=== PATIENT | female | born 1995 | race African-American/Black ===

== ENCOUNTER 2019-05-18 11:55 | Inpatient (IN) | payer OTHER ==
--- NOTE | 2019-05-18 12:20 | ED ---
Psychiatric Complaint - HPI Summary HPI Summary: Patient is a 25-year-old -Gibralt[place] female with a past medical history of anxiety and depression who presents to emergency department today with a chief complaint of suicidal ideation. Patient states she was talking her counselor today and her counselor advised that she come to the emergency department for further evaluation of her depression. She arrived via EMS. Patient states she' s been feeling more depressed over the last few weeks and often has feelings of wanting to jump into traffic or walking around. She says she does not have a plan and does not have homicidal ideation. Patient lives alone in her dorm at [employer] does not have access to firearms. She is never made gestures of self- harm in the past. She denies any physical pain today including chest pain, abdominal pain, fever, pain with urination, shortness of breath. She denies any recent alcohol or recreational drug use. She denies any recent medication changes. - History Of Current Complaint Chief Complaint: EDSuicidal Time Seen by Provider: 05/18/19 12:14 Hx Obtained From: Patient Onset/Duration: Worse Since, Other - Chronic problem with depression and anxiety Timing: Constant Character: Depressed, Anxious Alleviating Factor(s): Medication Associated Signs And Symptoms: Positive: Social Withdrawal Related History: Positive For: Prior Psychiatric Issues Has Suicidal: Reports: Thoughts. Denies: With A Plan, Demonstrates Gesture, Has Prior Attempt(s) Has Homicidal: Denies: Thoughts Recent Stressor(s): school has been increasingly more stressful - Risk Factor(s) Completed Suicide Risk Factors: Living Alone - Allergies/Home Medications Home Medications: Home Medications Atomoxetine (NF) [Strattera (NF)] 18 mg PO DAILY 05/18/19 [History Confirmed 05/26] Desvenlafaxine Succinate [Desvenlafaxine Succinate ER] 50 mg PO BID 05/18/19 [ History Confirmed 05/18/19] Gabapentin CAP(*) [Neurontin 100 mg CAP(*)] 100 mg PO TID 05/18/19 [History Confirmed 05/18/19] PMH/Surg Hx/FS Hx/Imm Hx Infectious Disease History: No Infectious Disease History: Denies: Traveled Outside the US in Last 30 Days Review of Systems Constitutional: Negative Cardiovascular: Negative Respiratory: Negative Gastrointestinal: Negative Genitourinary: Negative Positive: Anxious, Depressed All Other Systems Reviewed And Are Negative: Yes Physical Exam Triage Information Reviewed: Yes Vital Signs On Initial Exam: Initial Vitals Temp Pulse Resp BP Pulse Ox 98.0 F 75 16 117/82 100 05/18/19 11:55 05/18/19 11:55 05/18/19 11:55 05/18/19 11:55 05/18/19 11:55 Vital Signs Reviewed: Yes Appearance: Positive: Well-Appearing, No Pain Distress Skin: Positive: Warm, Skin Color Reflects Adequate Perfusion Head/Face: Positive: Normal Head/Face Inspection Eyes: Positive: Normal, EOMI ENT: Positive: Hearing grossly normal Respiratory/Lung Sounds: Positive: Clear to Auscultation, Breath Sounds Present Cardiovascular: Positive: Normal, RRR, S1, S2 Psychiatric: Positive: Affect/Mood Appropriate - Flattened affect, Depressed - Patient is IN is calm and in no acute distress. She makes poor eye contact and interview but has an organized thought process with good insight. She speaks in appropriate rate and volume. AVPU Assessment: Alert Procedures - Sedation Patient Received Moderate/Deep Sedation with Procedure: No Diagnostics - Vital Signs Vital Signs Temp Pulse Resp BP Pulse Ox 05/18/19 11:55 98.0 F 75 16 117/82 100 - Laboratory Result Diagrams: 05/18/19 12:35 05/18/19 12:35 Lab Statement: Any lab studies that have been ordered have been reviewed, and results considered in the medical decision making process. Course/Dx - Course Course Of Treatment: Patient was evaluated in the emergency department today for suicidal ideation. Upon arrival to the emergency department via EMS she was placed on a hallway bed and placed under constant observation. She was change into scrubs and laboratory studies including blood and urinalysis were obtained. Her urinalysis, laboratory studies and toxicology report were all unremarkable. She was cleared for mental health evaluation. Psychiatry evaluated the patient and thought she could be more appropriately managed as an inpatient. Patient was stable at the time of discharge. Patient made no gestures of self-harm during her stay in the emergency department. - Differential Dx/Clinical Impression Differential Diagnosis/HQI/PQRI: Positive: Acute Psychosis, Anxiety, Depression , Suicidal Ideation Provider Diagnosis: Depression Discharge ED - Sign-Out/Discharge Documenting (check all that apply): Patient Departure - Discharge Plan Condition: Stable [place] [place] [facility] - Matthew LONDON [Primary Care Provider] - - Billing Disposition and Condition Condition: STABLE Disposition: Psychiatric Facility [facility]
[2019-05-18 12:42] LABS: ABS Basophils 0.1 10^3/ul (0-0.2); ABS Eosinophils 0.1 10^3/ul (0-0.6); ABS Lymphocytes 1.3 10^3/ul (1.0-4.8); ABS Monocytes 0.6 10^3/ul (0-0.8); Eosinophil % 1.3 %; Hematocrit 42 % (35-47); Mean Corpuscular HGB Conc 33 g/dL (31-36); Mean Corpuscular Hemoglobin 28 pg (27-31); Mean Corpuscular Volume 83 fL (80-97); Mean Platelet Volume 8.1 fL (7.4-10.4); Nucleated Red Blood Cells % 0.1; Platelet Count 218 10^3/uL (150-450); Red Blood Count 5.02 10^6 /uL (3.70-4.87); Red Cell Distribution Width 14 % (10-15); White Blood Count 5.1 10^3/uL (3.5-10.8)
[2019-05-18 13:03] LABS: ALT 12 U/L (7-52); AST 15 U/L (13-39); Albumin 4.4 g/dL (3.2-5.2); Albumin/Globulin Ratio 1.8 (1-3); Alkaline Phosphatase 73 U/L (34-104); Anion Gap 4 mmol/L (2-11); BUN/Creatinine Ratio 12.9 (8-20); Blood Urea Nitrogen 11 mg/dL (6-24); CO2 Carbon Dioxide 27 mmol/L (22-32); Calcium 9.9 mg/dL (8.6-10.3); Chloride 108 mmol/L (101-111); EGFR African American 101.2 (>60); EGFR Non-African American 83.6 (>60); Globulin 2.5 g/dL (2-4); Glucose 86 mg/dL (70-100); Sodium 139 mmol/L (135-145); Total Protein 6.9 g/dL (6.4-8.9)
[2019-05-18 13:26] LABS: Acetaminophen < 15 mcg/mL; Alcohol < 10 mg/dL (<10); Salicylate < 2.50 mg/dL (<30)
[2019-05-18 13:41] LABS: TSH (Thyroid Stimulating Horm) 1.11 mcIU/mL (0.34-5.60)
[2019-05-18] MEDS ORDERED: Al Hydrox/Mg Hydrox/Simet LIQ* 30 ML UDC PO PRN (16:48)
[2019-05-18] MEDS ORDERED: Acetaminophen TAB* 325 MG PO PRN (16:48)
[2019-05-18] MEDS ORDERED: hydrOXYzine HCL TAB* 50 MG PO PRN (16:56)
[2019-05-18] MEDS: Gabapentin CAP(*) 100 MG PO SCH (22:50)
[2019-05-19] MEDS: Gabapentin CAP(*) 100 MG PO SCH ×3 (09:56→20:41)
--- NOTE | 2019-05-19 15:13 | HP ---
HISTORY AND PHYSICAL: DATE OF ADMISSION: 05/18/19 PROVIDER: Kamille Davis NP in Psychiatry. SUPERVISING PHYSICIAN: Celestine Lezama MD * (DICTATED BY KAMILLE DAVIS,Holly P) JUSTIFICATION FOR ADMISSION: Kady is in need of 24-hour supervision and care secondary to suicidal ideation with a plan to overdose or jump into a gorge. HISTORY OF PRESENT ILLNESS: The patient is a 24-year-old single black female with a history of depression since high school, who arrives brought in by ambulance from [facility] and is here on a voluntary status following her visit to [facility] and alerting them that she is having serious suicidal thoughts that she cannot reduce. Kady is a [employer] senior. She seeks psychiatric help at [facility] at [employer]. Since high school she has been struggling with depression. The first time she had treatment was in 2018, in her kaz year at [employer]. At this point, she has tried many medications and has not found any of them helpful. She is ready to overdose or jump in a gorge. One part of the problem is that she only can sleep 3 or 4 hours since beginning of May. She also has worries about what she is going to do after graduation. She is a chemistry major. She is from [place]. In high school, she felt like social stress, friends, basketball (which was not enjoyable), were all factors causing her to be depressed. Her family is supportive, but they are uneducated about depression and mental illness in general. They are more sikh than she is and they tell her things are "happening for a reason" which is difficult for her to understand as she has no concept of what could be the purpose of her unending suffering. She states she is feeling like she is getting no rest and she is burned out. She is "tired of being tired" and she has a lack of hunger cues and feels nauseated. Kady demonstrates significant depressive symptoms including reduced sleep, reduced interest, high levels of guilt related to her family and her schooling. Her energy is reduced. She cannot concentrate on school. Her appetite is reduced and she is having suicidal ideations. PAST PSYCHIATRIC HISTORY: She has no previous admissions. She is being seen every other week by therapist Carmelina Carlos at [employer]. She is also being seen by Dr. Rhiannon James, psychiatrist at [facility]. She has been in treatment since September 2017, although she has suffered for years before that. She states the only things that have helped are exercise from playing basketball in high school. She has had suicidal ideation for quite some time. She does not have access to weapons. PAST MEDICAL HISTORY: Denied. MEDICATIONS: Her previous psychiatric medications have included: 1. Wellbutrin. 2. Lexapro. 3. Prozac. 4. Pristiq. 5. Adderall. 6. Strattera. 7. Hydroxyzine. 8. Gabapentin. 9. Guaifenesin. 10. Melatonin. 11. Benadryl. Currently, she is on Pristiq 100 mg and Strattera 18 mg. She also is reported to be on gabapentin 100 mg t.i.d. VIOLENCE HISTORY: Denied forensic issues. She does not have access to weapons. There is no history of violence. FAMILY HISTORY: She has a mom, a dad and a brother who is 20 in June. Her brother lives in [place] and is working. She states that she is not close to any one other than her immediate family and therefore she does not know if there is mental illness in her family. SUBSTANCE ABUSE: She denies using nicotine, alcohol, or any other drugs including marijuana. She has had no drug treatment. SOCIAL HISTORY: She is from [place] where she lived with her mom, dad and brother. She currently lives alone in an apartment off campus. She denies any abuse history. 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 She does not have a partner or romantic interest. 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 She enjoys listening to music and playing video games. She has no experience. There are no legal problems. REVIEW OF SYSTEMS: The patient reports feeling fatigued. She denies shortness of breath, heat or cold intolerance, chest pain, or abdominal pain. She denies neurological symptoms. She denies fevers or changes in weight. PHYSICAL EXAMINATION GENERAL APPEARANCE: Well appearing, no pain or distress. VITAL SIGNS: On 05/19/19 at 0800, temperature was 97.4, pulse 68, respirations 16, O2 sat on room air 100%, blood pressure 114/64. HEENT: Head and Face: Normal head and face inspection. Eyes: Normal. EOMI. ENT: Hearing grossly normal. CARDIOVASCULAR: Normal RRR. S1 and S2. RESPIRATORY: Lung sounds clear to auscultation. Breath sounds present. SKIN: Warm. Skin color reflects adequate perfusion. LABORATORY DATA: Most laboratory data are within normal limits. Exceptions include red blood cells high at 5.02. Her toxicology screen for salicylates, acetaminophen and serum alcohol are all negative. It appears that there has not been a urinalysis or toxicology screen performed. PHYSICAL DESCRIPTION: Kady is a 5 feet 4 inches, 170 pounds black female with her hair pulled on top of her head into a bun. Her grooming is good. She appears to be slightly hypokinetic. MENTAL STATUS EXAM: She is calm and cooperative, although tearful at times. Her speech is a normal rate, tone and volume. It is minimal in quantity. She is dysthymic. She is tearful. She has normal thought process. She is free of delusions. She is not homicidal. She is suicidal. She has no plans on a unit , but her intention should she leave is to end her life. She is not having hallucinations. Her insight is good. Her judgment is fair. She is alert and oriented x4. DIAGNOSIS: Major depressive disorder. IMPRESSION: Kady is a 24-year-old single black female who is a senior, majoring in chemistry at [employer], who comes to the hospital after making plans to overdose or jump into a gorge and suicide. PLAN: The patient is admitted to the adult behavioral health unit and placed on 15- minute checks for her own safety. She is encouraged to participate in supportive milieu, individual and group therapies. Estimated length of stay is 3 to 7 days. We will obtain an MMPI for diagnostic clarification. We will titrate medications including starting Abilify, stopping gabapentin and Strattera and using Klonopin at bedtime for sleep while she is inpatient. We will monitor for mood and thought content. Discharge planning will include family involvement and outpatient providers. KAMILLE DAVIS, PATITO [id number]/[facility] #: [id number] LIZ
[2019-05-19] MEDS: ARIPiprazole TAB* 5 MG PO SCH (20:41)
[2019-05-19] MEDS ORDERED: clonazePAM TAB(*) 1 MG PO SCH (21:00)
[2019-05-20] MEDS ORDERED: Influenza VAC *QUAD* 2019-20* 0.5 ML SYRINGE IM ONE (09:00)
[2019-05-20] MEDS ORDERED: Venlafaxine EXT RELEASE CAP* 75 MG PO SCH (09:00)
[2019-05-20] MEDS: Gabapentin CAP(*) 100 MG PO SCH (11:38)
[2019-05-20] MEDS: CMC:Desvenlafaxine (NF) 50 MG TAB PO SCH (11:39)
--- NOTE | 2019-05-20 13:40 | PN ---
Subjective - Subjective Date of Service: 05/20/19 Service Type: [id number] Hosp care 25 min moderate complexity Subjective: Jaimee reports being tired of being here, although she has been here only one full day. She wants to know if she can be discharged on Saturday as she has a plane to catch on Saturday. She continues to have suicidal thoughts, however, and would not be safe in the outpatient world. She states she didn't sleep much here (3-4 hours), but rather just was lying in bed quietly. I did suggest that she give a little wave so people know if she's awake or asleep. She states the Klonopin was not helpful in making her feel tired. She was working on a time management schedule when I was talking to her. It looked packed with activity Saturday through , many days having no leisure time at all. We discussed sleep hygiene in addition to making a schedule that she can stick with and be comfortable with. Objective - General Observations Appearance: Neat, Well Groomed Appears Stated Age: Yes Stature: Overweight Posture: WNL Eye Contact: Intermittent Behavior/Activity: WNL - Interaction Observations Attitude Towards Examiner: Cooperative, Anxious, Defensive Affect: Restricted Speech Pattern/Tone: Clear Thought Process: Coherent Perception: WNL Thought Content: Preoccupation/Ruminations, Depressive, Self-Deprecatory Thought Process: Lethality: Passive Wish, Suicidal Planning Hallucination Type: None Delusion Type: None - Cognitive Function Orientation: A&O x 4 Level of Consciousness: Awake, Alert, Appropriate Cognition: WNL Estimated Intelligence: Normal Insight: Difficulty Acknowledging Presence of Psyciatric Problems Judgment Within Normal Limits: No Ability to Make Reasonable Decisions: Moderately Impaired - Medication Compliance Cooperative with Inpatient Medication Regimen: Yes - Group Participation Participates in Group Activities: Yes Assessment - Assessment Merits Inpatient Hospitalization: For Immediate Safety Inpatient DSM-V Dx: F33.1 Clinical Impression: Jaimee is a 24-year-old black woman diagnosed with major depressive disorder who comes to the hospital with suicidal ideation and plans to jump into a gorge or overdose. Plan - Plan Treatment Plan: Name: JAIMEE MAR Birthdate: 1995 [id number] 05/20/19 Yesterday we started her home medications in addition to Klonopin to help her sleep. Tonight, we will discontinue gabapentin and start Ativan for sleep. Continued Medication Management: Different Medication Medications: Current Medications Acetaminophen (Tylenol Tab*) 650 mg PO Q4H PRN PRN Reason: for pain; or Temp >101 F Al Hydrox/Mg Hydrox/Simethicone (Maalox Plus*) 30 ml PO Q4H PRN PRN Reason: INDIGESTION Aripiprazole (Abilify Tab*) 5 mg PO BEDTIME [facility] Last Admin: 05/19/19 20:41 Dose: 5 mg Clonazepam (Klonopin Tab(*)) 1 mg PO BEDTIME [facility] Last Admin: 05/19/19 20:42 Dose: 1 mg Desvenlafaxine Succinate (Pristiq (Nf)) 100 mg PO DAILY [facility] Last Admin: 05/20/19 11:39 Dose: 100 mg Gabapentin (Neurontin Cap(*)) 100 mg PO TID [facility] Last Admin: 05/20/19 11:38 Dose: 100 mg Hydroxyzine HCl (Atarax Tab*) 50 mg PO Q6H PRN PRN Reason: anxiety
--- NOTE | 2019-05-20 16:50 | PN ---
BSU: Group Therapy Note - Service Type Service Type: [id number] Group Psychotherapy - Group Participation Patient Participating in Group: No Level of Group Participation: Attentive, Non-participatory Relatedness to Group: Defended - Additional Group Comments Group Comments: Kady came to group and was on time. She did not participate, but she was attentive. She appeared uncomfortable during the group, perhaps because her neighboring group member was clearly psychotic and bizarre.
[2019-05-20] MEDS: LORazepam TAB(*) 1 MG PO SCH (20:51)
[2019-05-20] MEDS: ARIPiprazole TAB* 5 MG PO SCH (20:51)
[2019-05-21] MEDS: CMC:Desvenlafaxine (NF) 50 MG TAB PO SCH (08:40)
[2019-05-21] MEDS ORDERED: LORazepam TAB(*) 0.5 MG PO PRN (11:27)
--- NOTE | 2019-05-21 15:29 | PN ---
Subjective - Subjective Date of Service: 05/21/19 Service Type: 35223 Hosp care 25 min moderate complexity Subjective: Jaimee feels anxious but better, she is no longer suicidal. She talked to her parents on the phone twice last night. She states that they were "freaked out" when she told them that she was in the hospital. Her parents quickly recovered and are worried about her safety. Her mom is flying up from [place] on Saturday. Jaimee is motivated to stay well until her mom arrives due to the excitement of the concert that they'll be going to on Saturday. She would like to work on "life enjoyment, setting limits, and saying no". Objective - General Observations Appearance: Neat Appears Stated Age: Yes Stature: WNL Posture: Slumped Eye Contact: Intermittent Behavior/Activity: WNL - Interaction Observations Attitude Towards Examiner: Cooperative, Anxious Stated Mood: Dysphoric Affect: Restricted Speech Pattern/Tone: Appropriate, Quiet Volume Thought Process: Coherent, Goal Directed Perception: WNL Thought Content: Depressive Hallucination Type: None Delusion Type: None - Cognitive Function Orientation: A&O x 4 Level of Consciousness: Awake, Alert, Appropriate Cognition: WNL Estimated Intelligence: Normal Insight: WNL Judgment Within Normal Limits: Yes - Medication Compliance Cooperative with Inpatient Medication Regimen: Yes - Group Participation Participates in Group Activities: Partial Assessment - Assessment Merits Inpatient Hospitalization: For Immediate Safety, For Discharge Planning Inpatient DSM-V Dx: F33.1 Clinical Impression: Jaimee is a 24-year-old black woman diagnosed with major depressive disorder who comes to the hospital with suicidal ideation and plans to jump into a gorge or overdose. Plan - Plan Treatment Plan: Name: JAIMEE MAR Birthdate: 1995 [id number] 05/20/19 Yesterday we started her home medications in addition to Klonopin to help her sleep. Tonight, we will discontinue gabapentin and start Ativan for sleep. 05/21/2019: Today we added PRN Ativan during the day and changed scheduled to PRN at bedtime. Planning for discharge tomorrow. Medications: Current Medications Acetaminophen (Tylenol Tab*) 650 mg PO Q4H PRN PRN Reason: for pain; or Temp >101 F Al Hydrox/Mg Hydrox/Simethicone (Maalox Plus*) 30 ml PO Q4H PRN PRN Reason: INDIGESTION Aripiprazole (Abilify Tab*) 5 mg PO BEDTIME XOCHITL Last Admin: 05/20/19 20:51 Dose: 5 mg Desvenlafaxine Succinate (Pristiq (Nf)) 100 mg PO DAILY [facility] Last Admin: 05/21/19 08:40 Dose: 100 mg Hydroxyzine HCl (Atarax Tab*) 50 mg PO Q6H PRN PRN Reason: anxiety Lorazepam (Ativan Tab(*)) 1 mg PO BEDTIME [facility] Last Admin: 05/20/19 20:51 Dose: 1 mg Lorazepam (Ativan Tab(*)) 0.5 mg PO Q4H PRN PRN Reason: ANXIETY - Discharge Plan Discharge Plan: Outpatient Follow Up Outpatient Program: Counseling/Psych Services at [place]
[2019-05-21] MEDS: LORazepam TAB(*) 1 MG PO SCH (21:00)
[2019-05-21] MEDS: ARIPiprazole TAB* 5 MG PO SCH (21:00)
[2019-05-22 07:24] LABS: HDL Cholesterol 41.9 mg/dL
[2019-05-22] MEDS: CMC:Desvenlafaxine (NF) 50 MG TAB PO SCH (08:16)
[2019-05-22 10:38] VITALS: BP 117/72
--- NOTE | 2019-05-25 22:22 | DS ---
DISCHARGE SUMMARY: DATE OF ADMISSION: 05/18/19 DATE OF DISCHARGE: 05/22/19 PROVIDER: Kamille Davis NP in Psychiatry. SUPERVISING PHYSICIAN: Dr. Celestine Lezama.* (DICTATED BY KAMILLE DAVIS NP ) DIAGNOSIS: Major depressive disorder, recurrent, severe. CONDITION AT THE TIME OF DISCHARGE: Improved, psychiatrically cleared, stable. Participated in groups and was social with peers. Her family is agreeable to discharge and in fact her mother is coming from [place] to be with her on Saturday. She has done well here psychiatrically. She tolerated new medications including lorazepam and Abilify. She will be attending [facility]. MENTAL STATUS EXAM: At the time of discharge, Kady is calm, cooperative, and makes good eye contact. She is alert and oriented x4. Her grooming is good. Her speech pace is normal. Her thought processes are logical. She is not psychotic or delusional. She denies AH, VH, SI, and HI. Her insight and judgment are good. She is willing to follow up and she is urged to see her therapist. DISCHARGE INSTRUCTIONS TO THE PATIENT: A. Medications: 1. Aripiprazole 5 mg at bedtime, dispensed 30. 2. Pristiq 100 mg daily. 3. Hydroxyzine 50 mg q.6 hours p.r.n. anxiety. 4. Lorazepam 0.5 mg q.4 hours p.r.n. anxiety, dispensed 30 tablets. 5. Ativan 1 mg at bedtime, dispensed 15 tablets, p.r.n. sleep. B. Diet is regular. C. Activities are as tolerated. She is a nonsmoker. There are no studies pending at the time of discharge. D. Followup care: She has an appointment at [facility] with Jovanna Castillo on 05/22/19 at 4 p.[address]. on level 7 of the building. Please arrive 10 minutes earlier for your appointment. She is also informed on a group [facility] support group at [facility] Tuesdays at 3:30 to 4:45, drop-ins welcome level 1 in the [place] conference room. E. Disposition: She is returning back to her apartment. F. Substance abuse followup is not indicated. HOSPITAL COURSE: Part A: Justification for admission: Kady is in need of 24- hour supervision and care secondary to suicidal ideation with a plan to overdose or jump into a gorge. The patient is a 24-year-old single black female with a history of depression since her high school, who arrives brought in by ambulance from [facility] and is here on a voluntary status following her visit to [facility] and is alerting them that she is having serious suicidal thoughts that she cannot reduce. Kady is a [employer] senior. She seeks psychiatric help at [facility] at [employer]. Since high school, she has been struggling with depression. The first time she had treatment was in 2018 in her kaz year at [employer]. At this point, she tried many medications and has not found any of them helpful. She is ready to overdose or jump into a gorge. One part of the problem is that she only can sleep 3 or 4 hours per night since beginning of May. She also has worries about what she is going to do after graduation. She is a chemistry major. She is from [place]. In high school, she felt like social stress, friends, basketball (which was not enjoyable) were all factors causing her to be depressed. Her family is supportive, but they are uneducated about depression and mental illness in general. They are more zoroastrian than she is and they tell her that things are "happening for a reason" which is difficult for her to under-stand as she has no concept of what could be the purpose of her unending suffering. She states she is feeling like she is getting no rest and she is burned out. She is " tired of being tired" and she has a lack of hunger cues and feels nauseated. Kady demonstrates significant depressive symptoms including reduced sleep, reduced interest, high levels of guilt related to her family and her schooling. Her energy is reduced. She cannot concentrate on school. Her appetite is reduced and she is having suicidal ideations. Part B: Psychiatric treatment was rendered. Kady was admitted to the adult behavioral unit and placed on 15-minute checks for safety. She did advance to 30- minute checks and staff pass privileges. Kady did well on the unit, went to many groups, was often seclusive to herself, but interacted appropriately. She tolerated med changes. We started Abilify 5 and maintained her Pristiq 100. We also added lorazepam. We chose lorazepam rather than increasing hydroxyzine or trying more gabapentin because she had tried all of these agents and found none of them helpful. I did advise her that Ativan is not an agent that is advisable to stay on for a long period of time and that they should be used as an emergency stopgap measure only. She was prescribed fewer tablets than her maximum daily dosages would be and she was advised of this. I did not meet with her family, but her mother is coming up from [place] to take her to a concert that is happening in [place]. Kady had asked to be discharged on Saturday earlier in the week so that she could get on a plane and go to [place] by herself. We discussed that and determined that was a poor plan--being alone in a new place while still experiencing SI, as she was when she initially asked. By Saturday, however, her mother wanted to be with her, so she came up from [place]. They were together on Saturday and went to the concert on Saturday. Her mother agreed to stay with Kady until Kady felt better. No consults were entered. She is much improved. She is seen smiling. She is actually benefiting from the boredom here at the hospital and making her want to get back out into the world and do what she has to do. She is future oriented. She is no longer suicidal. Her sleep improved while she was here as well. KAMILLE DAVIS, PATITO [id number]/[facility] #: [id number] LIZ
== END 2019-05-22 14:31 | disposition home or self-care (01) | DRG 885 ==
LOC: EDBD → ED 11:55 → BSU 16:48
PROVIDERS: ADMIT Psychiatry & Neurology Psychiatry; ATTEND Psychiatry & Neurology Psychiatry
DX: F33.1 Major depressive disorder, recurrent, moderate (principal); R45.851 Suicidal ideations; Z79.899 Other long term (current) drug therapy
CPT/HCPCS: 36415; 80053; 80061; 80320; 80329; 83036; 84443; 85025; 90686; 90853; 99222; 99232; 99238; 99284; A9270-GY; G0480

== ENCOUNTER 2019-08-24 12:03 | Inpatient (IN) | payer OTHER ==
--- NOTE | 2019-08-24 13:04 | ED ---
Psychiatric Complaint - HPI Summary HPI Summary: The patient is a 24 y/o F presenting to [facility] with a cc of depression and SI worsening over the last few weeks. Today, she went to the [facility] and was referred her for a MHE due to the intermittent episodes of SI increasing in severity. She states a plan for cutting herself or jumping off of something. She denies any self-harm at this time or any HI. She notes a history of depression and anxiety, and she currently takes Pristiq. She has been seen at [facility] with last admission in May 2019. PMHx: headaches. No FHx of psychiatric conditions. Nonsmoker, no EtOH, no substance use. Medications reviewed. Allergies noted. - History Of Current Complaint Chief Complaint: EDSuicidal Time Seen by Provider: 08/24/19 12:11 Hx Obtained From: Patient Onset/Duration: Gradual Onset, Lasting Weeks, Still Present, Worse Since - today Timing: Days Severity Initially: Mild Severity Currently: Moderate Character: Depressed Aggravating Factor(s): Nothing Alleviating Factor(s): Other - went to [facility] today and was referred here Associated Signs And Symptoms: Positive: Negative Related History: Positive For: Prior Psychiatric Issues - anxiety, depression Has Suicidal: Reports: Thoughts, With A Plan Has Homicidal: Denies: Thoughts - Allergies/Home Medications Allergies/Adverse Reactions: Allergies Allergy/AdvReac Type Severity Reaction Status Date / Time No Known Allergies Allergy Verified 08/24/19 12:45 PMH/Surg Hx/FS Hx/Imm Hx Endocrine/Hematology History: Denies: Hx Diabetes Respiratory History: Denies: Hx Asthma Sensory History: Denies: Hx Contacts or Glasses, Hx Hearing Aid Opthamlomology History: Denies: Hx Contacts or Glasses Neurological History: Reports: Hx Headaches Psychiatric History: Reports: Hx Anxiety, Hx Depression Denies: Hx Eating Disorder, Hx Panic Disorder, Hx Suicide Attempt, Hx of Violent Episodes Against Others - Surgical History Surgical History: Yes Surgery Procedure, Year, and Place: [place] teeth Infectious Disease History: No Infectious Disease History: Denies: Traveled Outside the [place] in Last 30 Days - Family History Known Family History: Negative: Other - psychiatric conditions - Social History Alcohol Use: None Hx Substance Use: No Substance Use Type: Reports: None Hx Tobacco Use: No Smoking Status (MU): Never Smoked Tobacco Review of Systems Negative: Other - self-inflicted wounds Positive: Depressed, Other - SI with plan; Negative: HI All Other Systems Reviewed And Are Negative: Yes Physical Exam - Summary Physical Exam Summary: General: Well appearing, no distress HEENT: PERRL Cardiovascular: Skin is well perfused Pulmonary: No respiratory distress, no tachypnea Abdomen: Non-distended Skin: Warm, pink, dry MSK: No edema Psych: Normal affect Neuro: A&Ox3 Triage Information Reviewed: Yes Vital Signs On Initial Exam: Initial Vitals Temp Pulse Resp BP Pulse Ox 98.4 F 69 14 107/65 99 08/24/19 12:07 08/24/19 12:07 08/24/19 12:07 08/24/19 12:07 08/24/19 12:07 Vital Signs Reviewed: Yes Procedures - Sedation Patient Received Moderate/Deep Sedation with Procedure: No Diagnostics - Vital Signs Vital Signs Temp Pulse Resp BP Pulse Ox 08/24/19 12:07 98.4 F 69 14 107/65 99 - Laboratory Result Diagrams: 08/24/19 13:13 08/24/19 13:13 Lab Statement: Any lab studies that have been ordered have been reviewed, and results considered in the medical decision making process. Re-Evaluation - Re-Evaluation First Eval Re-Evaluation Time: 13:00 Comment: Patient is medically clear for MHE. Course/Dx - Course Course Of Treatment: 24 y/o F p/w depressive episode. Placed in scrubs, q15 checks. MH team to eval. - Differential Dx/Clinical Impression Provider Diagnosis: Major depressive disorder, recurrent, unspecified - Physician Notifications Discussed Care Of Patient With: Celestine Lezama - psychiatry Time Discussed With Above Provider: 15:20 Instructed by Provider To: Other - Dr. Lezama and mental health staff have evaluated the patient and have determined she is appropriate for admission, which the patient agrees with. Discharge ED - Sign-Out/Discharge Documenting (check all that apply): Patient Departure - Patient admitted by Dr. Lezama to [facility] psychiatric unit. - Discharge Plan Condition: Stable Disposition: PSYCHIATRIC FACILITY-[facility] Referrals: [facility] - Matthew LONDON [Primary Care Provider] - - Billing Disposition and Condition Condition: STABLE Disposition: Psychiatric Facility [facility] - Attestation Statements Document Initiated by Scribe: Yes Documenting Scribe: Valerie Calhoun Provider For Whom Scribe is Documenting (Include Credential): Dr. Raj Woods MD Scribe Attestation: I, Valerie Calhoun, scribed for Dr. Raj Woods MD on 08/24/19 at 1547. Scribe Documentation Reviewed: Yes Provider Attestation: The documentation as recorded by the Valerie burns accurately reflects the service I personally performed and the decisions made by me, Dr. Raj Woods MD Status of Scribe Document: Viewed
[2019-08-24 13:24] LABS: ABS Basophils 0.1 10^3/ul (0-0.2); ABS Eosinophils 0.1 10^3/ul (0-0.6); ABS Lymphocytes 1.5 10^3/ul (1.0-4.8); ABS Monocytes 0.5 10^3/ul (0-0.8); ABS Neutrophils 3.5 10^3/ul (1.5-7.7); Eosinophil % 1.9 %; Hematocrit 41 % (35-47); Hemoglobin 13.8 g/dL (12.0-16.0); Lymphocyte % 26.4 %; Mean Corpuscular HGB Conc 34 g/dL (31-36); Mean Corpuscular Hemoglobin 28 pg (27-31); Mean Corpuscular Volume 83 fL (80-97); Mean Platelet Volume 8.4 fL (7.4-10.4); Nucleated Red Blood Cells % 0.1; Platelet Count 241 10^3/uL (150-450); Red Blood Count 5.01 10^6 /uL (3.70-4.87); Red Cell Distribution Width 14 % (10-15); White Blood Count 5.8 10^3/uL (3.5-10.8)
[2019-08-24 13:30] LABS: Urine Appearance Cloudy; Urine Bilirubin Negative (Negative); Urine Blood Negative (Negative); Urine Color Yellow; Urine Glucose Negative (Negative); Urine Ketones Negative (Negative); Urine Nitrite Negative (Negative); Urine Protein Negative (Negative); Urine Specific Gravity 1.024 (1.010-1.030); Urine Urobilinogen Negative (Negative)
[2019-08-24 13:43] LABS: Urine Benzodiazepine Screen None Detected (None Detect); Urine Opiates Screen None Detected (None Detect)
[2019-08-24 13:44] LABS: Albumin 4.7 g/dL (3.2-5.2); Anion Gap 6 mmol/L (2-11); CO2 Carbon Dioxide 26 mmol/L (22-32); Calcium 9.8 mg/dL (8.6-10.3); Chloride 105 mmol/L (101-111); Sodium 137 mmol/L (135-145)
[2019-08-24 13:50] LABS: ALT 50 U/L (7-52); AST 25 U/L (13-39); Albumin/Globulin Ratio 1.7 (1-3); Alkaline Phosphatase 72 U/L (34-104); BUN/Creatinine Ratio 10.7 (8-20); Blood Urea Nitrogen 9 mg/dL (6-24); EGFR African American 102.6 (>60); EGFR Non-African American 84.8 (>60); Globulin 2.7 g/dL (2-4); Glucose 82 mg/dL (70-100); Total Protein 7.4 g/dL (6.4-8.9)
[2019-08-24 13:55] LABS: Acetaminophen < 15 mcg/mL; Alcohol < 10 mg/dL (<10); Salicylate < 2.50 mg/dL (<30)
[2019-08-24 14:10] LABS: TSH (Thyroid Stimulating Horm) 1.06 mcIU/mL (0.34-5.60)
[2019-08-24] MEDS ORDERED: Al Hydrox/Mg Hydrox/Simet LIQ* 30 ML UDC PO PRN (15:45)
[2019-08-24] MEDS ORDERED: Acetaminophen TAB* 325 MG PO PRN (15:45)
[2019-08-24] MEDS ORDERED: hydrOXYzine HCL TAB* 50 MG PO PRN (15:46)
[2019-08-25 08:36] LABS: HDL Cholesterol 48.4 mg/dL
[2019-08-25] MEDS: CMCS:Desvenlafaxine (NF) 50 MG TAB PO SCH (11:22)
[2019-08-25] MEDS ORDERED: LORazepam TAB(*) 1 MG PO ONE ×2 (11:42→21:00)
--- NOTE | 2019-08-25 13:41 | HP ---
HISTORY AND PHYSICAL: DATE OF ADMISSION: 08/24/19 PROVIDER: Kamille Davis NP in Psychiatry. SUPERVISING PHYSICIAN: Celestine Lezama MD * (DICTATED BY KAMILLE DAVIS NP) JUSTIFICATION FOR ADMISSION: The patient is in need of 24-hour supervision and care secondary to suicidal ideation with a plan CHIEF COMPLAINT: "I do not see my life going anywhere...I am stuck." HISTORY OF PRESENT ILLNESS: The patient is a 24-year-old single black female with a history of depressive disorder, who was brought here on a 9.45 status and is here admitted to this unit on a voluntary status after stating that she is having suicidal thoughts that have been going on for some time. Kady has been here once before in May 2019, following that visit she returned to [facility] and saw Dr. Rhiannon Calderon. Dr. Calderon changed her medications from Pristiq, Abilify and Ativan to Pristiq and was hoping to work on giving her lithium, which was suggested to address her chronic suicidal ideation. She states that she is speaking with friends at work and in class, but is generally isolated from them and she goes home. She states she sits at home and "watches nothing change." She has been missing a few classes here and there. It is 3 weeks into this semester, so she is not certain if her grades are maintained or not. She did pass last semester. She states she is tired and frustrated and she cries because she is frustrated and alone. She states she does not see her life going anywhere and that she is stuck. She states that her depression leads to further depression that her grades have been suffering and she has a lack of direction. She states she does not have an interest in chemistry or anything else anymore. She is experiencing stress and burnout as she has for years. She is sleeping irregularly. She states the only thing that has helped her sleep in the past is Ativan. She has tried melatonin and hydroxyzine. She is having suicidal ideations. She initially states she does not really have a plan and then admits to having a plan of cutting. Her evaluation in the emergency department indicates that she is also considering jumping from a height. She further notes that she has a flight home on Saturday to see her family. She is not apparently eager to see them and offers a long pause and a sigh when asked if she wants to go on this flight. Her sleep is irregular, interest is significantly reduced. Her energy is reduced. She has had trouble concentrating on her schoolwork. She is sitting very still, does not gesture at all and she has suicidal ideation. PAST PSYCHIATRIC HISTORY: She was admitted here on 05/18/19 for a stay of 5 days. She was seen recently and frequently in the past week by her therapist Carmelina Gilbert at [facility]. She has also seen Dr. Rhiannon Calderon, the psychiatrist at [facility] that she has been assigned to. She has been in treatment since September 2017, although she has suffered for years before that. She states the only thing that has helped was exercise from playing basketball in high school. She has had suicidal ideation for years. She does not have access to weapons. PAST MEDICAL HISTORY: Denied. MEDICATIONS: That she has tried in the past include: 1. Wellbutrin. 2. Lexapro. 3. Prozac. 4. Pristiq. 5. Adderall. 6. Strattera. 7. Hydroxyzine. 8. Gabapentin. 9. Guaifenesin. 10. Melatonin 11. Benadryl. She is currently on Pristiq 100 mg. She has been prescribed BuSpar but has not started that yet. VIOLENCE HISTORY: She denies forensic issues. She does not have access to weapons. There is no history of violence. FAMILY HISTORY: She has mom and dad and a brother who is 21. Her brother lives in [place] and is working. She states that she is not close to anyone other than her immediate family and therefore she does not know if there is mental illness in her family. SUBSTANCE ABUSE: She denies using nicotine, alcohol or any other drugs including marijuana. She has had no drug treatment. SOCIAL HISTORY: She is from [place] where she lived with her mom dad and brother. She currently lives alone in an apartment off campus. She denies any abuse history. She is a senior at [employer], majoring in chemistry. She does not have a partner or a romantic interest. 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 She enjoys listening to music and playing video games. She has no experience. There are no legal problems. REVIEW OF SYSTEMS: The patient reports feeling fatigued. She denies shortness of breath, heat or cold intolerance, chest pain or abdominal pain. She denies neurological symptoms. She denies fevers or changes in weight. PHYSICAL EXAMINATION GENERAL: Well appearing, in no distress. VITAL SIGNS: On 08/25/19 at 0800 temperature was 97.3, pulse 90, respirations 14, O2 sat on room air 100, blood pressure 116/71. HEENT: PERRL. PULMONARY: No respiratory distress. No tachypnea. CARDIOVASCULAR: Skin is well perfused. ABDOMEN: Nondistended. SKIN: Warm, pink and dry. MUSCULOSKELETAL: No edema. NEUROLOGIC: Alert and oriented x4. DIAGNOSTIC STUDIES/LAB DATA: Most data are within normal limits exceptions include red blood cells high at 5.01, hemoglobin A1c is normal at 5.5%, triglycerides 79, cholesterol 188, LDL cholesterol 124, HDL cholesterol 48.4. TSH is 1.06. Toxicology screen is free from any drugs of abuse. MENTAL STATUS EXAM: Kady is 5 feet 4 inches approximately 170 pounds. She is a black female with her hair pulled on top of her head into a bun and she is wearing a fabric headband that covers her ears. Her grooming is good. She appears to be hypokinetic. She is calm and cooperative. She is quiet and requires prompting to answer questions. Her speech is in normal rate and tone. Volume is soft. She is dysthymic. She is tearful at times. Her thought processes appear to be of a normal rate and they are logical. Her thought content is free of delusions. She is not homicidal. She remains suicidal and is thinking of suicide on the unit, although she does not have a method on the unit. She is not experiencing hallucinations. Her insight is fair. Her judgment is fair. She is alert and oriented x4. DIAGNOSIS: Major depressive disorder, recurrent, severe. IMPRESSION: Kady is a 24-year-old woman who comes to the hospital after being on a 9.45 status at [facility]. She has been isolating from home. She has been considering suicide either from cutting herself or jumping from a bridge, and she is putting significant pressures on herself to perform better at work and in school. PLAN: The patient is admitted to adult behavioral health unit and placed on q.15 minute checks for her own safety. She is encouraged to participate in supportive, milieu, individual, and group therapies. Estimated length of stay is 5 to 7 days. We will titrate medications including starting Wellbutrin and monitoring for mood and thought content. Discharge planning will include family involvement and outpatient providers. KAMILLE DAVIS, PATITO [id number]/CPS #: [id number] LIZ
[2019-08-25] MEDS: BuPROPion XL* 150 MG TAB.XL PO SCH (13:45)
[2019-08-26] MEDS: CMCS:Desvenlafaxine (NF) 50 MG TAB PO SCH (09:30)
[2019-08-26] MEDS: BuPROPion XL* 150 MG TAB.XL PO SCH (09:30)
--- NOTE | 2019-08-26 14:45 | PN ---
Subjective - Subjective Date of Service: 08/26/19 Service Type: 00117 Hosp care 15 min low complexity Plan - Plan Treatment Plan: Name: JAIMEE MAR Birthdate: 1995 [id number] Medications: Current Medications Acetaminophen (Tylenol Tab*) 650 mg PO Q4H PRN PRN Reason: for pain; or Temp >101 F Al Hydrox/Mg Hydrox/Simethicone (Maalox Plus*) 30 ml PO Q4H PRN PRN Reason: INDIGESTION Bupropion HCl (Wellbutrin Xl *) 150 mg PO DAILY [facility] Last Admin: 08/26/19 09:30 Dose: 150 mg Desvenlafaxine Succinate (Pristiq (Nf)) 100 mg PO DAILY [facility] Last Admin: 08/26/19 09:30 Dose: 100 mg Hydroxyzine HCl (Atarax Tab*) 50 mg PO Q6H PRN PRN Reason: Anxiety
--- NOTE | 2019-08-26 14:46 | PN ---
Subjective - Subjective Date of Service: 08/26/19 Service Type: 67955 Hosp care 25 min moderate complexity Subjective: Met with Mariam in the milieu. She is seated at a table with her journal and a puzzle nearby, however, she is not engaged in any activity. When asked how she is feeling, she gives a shrug and says, "okay". She is feeling depressed and fatigued, but denies feeling suicidal. She states that she feels safe on the unit and is content with being inpatient. She is not attending the group session in progress. When asked about this, she gives a shrug. She reports that she attended the group this morning and that the subject was CBT. She did not find this particularly helpful because she has "heard it before". She is noted to smile and make eye contact occasionally at times during this conversation. Discussed Wellbutrin as this has been added to her medication regimen, she verbalizes understanding of this medication. She talked about the phone call that she had with her parents earlier today. She states that they don't fully understand depression and that the things that they say to her are reflective of that. She doesn't know how to talk to them about the seriousness of her depression. She agrees to allow the social work program coordinator to reach out to them. Objective - General Observations Appearance: Well Groomed Appears Stated Age: Yes Stature: Overweight Posture: Slumped Eye Contact: Intermittent Behavior/Activity: Slowed - Interaction Observations Attitude Towards Examiner: Cooperative Stated Mood: Dysphoric Affect: Flat Speech Pattern/Tone: Clear, Appropriate, Quiet Volume Thought Process: Coherent Perception: WNL Thought Content: WNL Thought Process: Lethality: Passive Wish Hallucination Type: None Delusion Type: None - Cognitive Function Orientation: A&O x 4 Level of Consciousness: Awake, Alert, Appropriate Cognition: WNL Estimated Intelligence: Normal Insight: WNL Judgment Within Normal Limits: No Ability to Make Reasonable Decisions: Moderately Impaired - Medication Compliance Cooperative with Inpatient Medication Regimen: Yes - Group Participation Participates in Group Activities: Partial Assessment - Assessment Merits Inpatient Hospitalization: For Immediate Safety, For Stabilization Clinical Impression: mariam is a young woman from [place] diagnosed with Major Depressive Disorder who came to the hospital after many crisis visits to [facility] with suicidal thoughts. Plan - Plan Treatment Plan: Name: MARIAM MAR Birthdate: 1995 [id number] 08/26/2019 Wellbutrin XL 150mg daily added. Conversation with patient about talking with her parents and providing education about depression. Continued Medication Management: Start Medication Medications: Current Medications Acetaminophen (Tylenol Tab*) 650 mg PO Q4H PRN PRN Reason: for pain; or Temp >101 F Al Hydrox/Mg Hydrox/Simethicone (Maalox Plus*) 30 ml PO Q4H PRN PRN Reason: INDIGESTION Bupropion HCl (Wellbutrin Xl *) 150 mg PO DAILY [facility] Last Admin: 08/26/19 09:30 Dose: 150 mg Desvenlafaxine Succinate (Pristiq (Nf)) 100 mg PO DAILY [facility] Last Admin: 08/26/19 09:30 Dose: 100 mg Hydroxyzine HCl (Atarax Tab*) 50 mg PO Q6H PRN PRN Reason: Anxiety
[2019-08-27] MEDS: BuPROPion XL* 150 MG TAB.XL PO SCH (08:23)
[2019-08-27] MEDS: CMCS:Desvenlafaxine (NF) 50 MG TAB PO SCH (08:23)
--- NOTE | 2019-08-27 12:41 | PN ---
Subjective - Subjective Date of Service: 08/27/19 Service Type: 85389 Hosp care 15 min low complexity Subjective: Mariam is found laying in bed in her room shortly after lunch. She agreed to talk at this time and sits up to engage in conversation. She reports feeling "about the same" as yesterday but is understanding of the fact that her new medication regimen will likely take awhile before reaching full efficacy. Discussed groups, she reports that she has been attending groups today. She agrees to the plan to continue this and to also make an effort to engage with others in the milieu vs staying in her room. Discussed Abilify as she had been taking this previously and noted mood improvement with this medication. She tells this interviewer that she did feel better when she was taking Abilify but that the psychiatrist at [place] did not agree with using this medication and titrated her off of it. She expresses concern about side effects but also expresses understanding of the risks of untreated major depression, particularly in the context of persistent suicidal thoughts. She would like to give the Pristiq and Wellbutrin a chance to work, but if they are not effective , she would like to go back to Abilify. Objective - General Observations Appearance: Neat Appears Stated Age: Yes Stature: Overweight Posture: Slumped Eye Contact: Average Behavior/Activity: Slowed - Interaction Observations Attitude Towards Examiner: Cooperative Stated Mood: Dysphoric Affect: Flat Speech Pattern/Tone: Clear, Appropriate, Quiet Volume Thought Process: Coherent Perception: WNL Thought Content: WNL Thought Process: Lethality: Passive Wish Hallucination Type: None Delusion Type: None - Cognitive Function Orientation: A&O x 4 Level of Consciousness: Awake, Alert, Appropriate Cognition: WNL Estimated Intelligence: Normal Insight: WNL Judgment Within Normal Limits: No Ability to Make Reasonable Decisions: Moderately Impaired - Medication Compliance Cooperative with Inpatient Medication Regimen: Yes - Group Participation Participates in Group Activities: Yes Assessment - Assessment Merits Inpatient Hospitalization: For Immediate Safety, For Stabilization, For Discharge Planning Clinical Impression: mariam is a young woman from [place] diagnosed with Major Depressive Disorder who came to the hospital after many crisis visits to [facility] with suicidal thoughts. 08/27/2019 Mariam continues to feel dysphoric but she is taking steps to improve her mood. She is increasing her participation in groups and is making an effort to engage with others in the milieu. Plan - Plan Treatment Plan: Name: MARIAM MAR Birthdate: 1995 [id number] 08/26/2019 Wellbutrin XL 150mg daily added. Conversation with patient about talking with her parents and providing education about depression. 08/27/2019 Discussed attending groups activities and engaging with others in the [facility]. Medications: Current Medications Acetaminophen (Tylenol Tab*) 650 mg PO Q4H PRN PRN Reason: for pain; or Temp >101 F Al Hydrox/Mg Hydrox/Simethicone (Maalox Plus*) 30 ml PO Q4H PRN PRN Reason: INDIGESTION Bupropion HCl (Wellbutrin Xl *) 150 mg PO DAILY [facility] Last Admin: 08/27/19 08:23 Dose: 150 mg Desvenlafaxine Succinate (Pristiq (Nf)) 100 mg PO DAILY [facility] Last Admin: 08/27/19 08:23 Dose: 100 mg Hydroxyzine HCl (Atarax Tab*) 50 mg PO Q6H PRN PRN Reason: Anxiety
[2019-08-28] MEDS: CMCS:Desvenlafaxine (NF) 50 MG TAB PO SCH (08:35)
[2019-08-28] MEDS: BuPROPion XL* 150 MG TAB.XL PO SCH (08:36)
--- NOTE | 2019-08-28 10:10 | PN ---
Subjective - Subjective Date of Service: 08/28/19 Service Type: 45342 Hosp care 35 min high complexity Subjective: Nursing Report: Patient mostly in her room, no behavioral incidents, poor sleep CC: "I am a little out of it Patient was seen and evaluated today. The patient reported she feels out of it any not sure if it is from the medications, she reported diminished appetite and trouble sleeping. She did not have family visitors this afternoon. She remains mostly in her room and doesnt interact with others. Patient was encouraged to eat. Objective - General Observations Appearance: Neat Appears Stated Age: Yes Stature: Overweight Posture: Slumped Eye Contact: Average Behavior/Activity: Slowed - Interaction Observations Attitude Towards Examiner: Cooperative Stated Mood: Dysphoric Affect: Restricted Speech Pattern/Tone: Normal Volume Thought Process: Coherent Perception: Depersonalization Thought Content: Depressive Hallucination Type: Denies Delusion Type: Denies - Cognitive Function Orientation: A&O x 4 Level of Consciousness: Awake - Medication Compliance Cooperative with Inpatient Medication Regimen: Yes - Group Participation Participates in Group Activities: Yes Assessment - Assessment Merits Inpatient Hospitalization: For Immediate Safety Clinical Impression: mariam is a young woman from [place] diagnosed with Major Depressive Disorder who came to the hospital after many crisis visits to [facility] with suicidal thoughts. Mariam continues to feel dysphoric but she is taking steps to improve her mood. She is increasing her participation in groups and is making an effort to engage with others in the milieu. Plan - Plan Treatment Plan: Name: MARIAM MAR Birthdate: 1995 [id number] # Q30 minute observation with staff pass # The patient requires psychiatric inpatient admission at this time to assure safety, receive treatment and work toward stabilization. # B-HCG was ordered and results are negative. # Obtain collateral information once release is signed. # Collaboration with Music Therapy Teacher Shyann Naranjo # Continue wellbutrin 150mg daily and pristiq 100mg daily #Goals before discharge include: Psychiatric Stabilization Tentative Discharge: Pending hospital course and response to treatment Sodium 137 mmol/L (135-145) 08/24/19 13:13 Potassium 4.0 mmol/L (3.5-5.0) 08/24/19 13:13 BUN 9 mg/dL (6-24) 08/24/19 13:13 Creatinine 0.84 mg/dL (0.51-0.95) 08/24/19 13:13 Hemoglobin A1c 5.5 % (4.0-5.6) 08/25/19 08:01 Calcium 9.8 mg/dL (8.6-10.3) 08/24/19 13:13 AST 25 U/L (13-39) 08/24/19 13:13 ALT 50 U/L (7-52) 08/24/19 13:13 Triglycerides 79 mg/dL 08/25/19 08:01 Cholesterol 188 mg/dL 08/25/19 08:01 LDL Cholesterol 124 mg/dL 08/25/19 08:01 Continued Medication Management: Continue Outpt Medication Medications: Current Medications Acetaminophen (Tylenol Tab*) 650 mg PO Q4H PRN PRN Reason: for pain; or Temp >101 F Al Hydrox/Mg Hydrox/Simethicone (Maalox Plus*) 30 ml PO Q4H PRN PRN Reason: INDIGESTION Bupropion HCl (Wellbutrin Xl *) 150 mg PO DAILY [facility] Last Admin: 08/28/19 08:36 Dose: 150 mg Desvenlafaxine Succinate (Pristiq (Nf)) 100 mg PO DAILY [facility] Last Admin: 08/28/19 08:35 Dose: 100 mg Hydroxyzine HCl (Atarax Tab*) 50 mg PO Q6H PRN PRN Reason: Anxiety Last Admin: 08/27/19 22:00 Dose: 50 mg - Discharge Plan Discharge Plan: Inpatient Hospitalization Outpatient Program: Counseling/Psych Services at [place]
--- NOTE | 2019-08-28 11:25 | PN ---
BSU: Group Therapy Note - Service Type Service Type: [id number] Group Psychotherapy - Cognitive Behavioral Group Therapy ( CBT):Patient was attentive and participatory in CBT programming this morning, and remained in good behavioral control. Patient expressed positive insights regarding relevant treatment interventions and goals.
[2019-08-29] MEDS: CMCS:Desvenlafaxine (NF) 50 MG TAB PO SCH (08:37)
[2019-08-29] MEDS: BuPROPion XL* 150 MG TAB.XL PO SCH (08:37)
--- NOTE | 2019-08-29 14:14 | PN ---
Subjective - Subjective Date of Service: 08/29/19 Service Type: 53771 Hosp care 25 min moderate complexity Subjective: Mariam was out in the day room socializing with another male peer. Her only complaints was interrupted sleep. Otherwise taking her meds and tolerating them. Denies SI, HI or delusions. Eating well. Objective - General Observations Appearance: Neat Stature: Overweight Posture: WNL Eye Contact: Average Behavior/Activity: WNL - Interaction Observations Attitude Towards Examiner: Cooperative Stated Mood: Euthymic Affect: Full Speech Pattern/Tone: Clear, Appropriate, Normal Volume Thought Process: Coherent, Goal Directed Perception: WNL Thought Content: WNL Hallucination Type: Denies Delusion Type: Denies - Cognitive Function Orientation: A&O x 4 Cognition: WNL Estimated Intelligence: Normal Insight: WNL Judgment Within Normal Limits: Yes - Medication Compliance Cooperative with Inpatient Medication Regimen: Yes - Group Participation Participates in Group Activities: Yes Assessment - Assessment Merits Inpatient Hospitalization: Consolidate Improvements, For Discharge Planning Clinical Impression: mariam is a young woman from [place] diagnosed with Major Depressive Disorder who came to the hospital after many crisis visits to [facility] with suicidal thoughts. Mariam continues to feel dysphoric but she is taking steps to improve her mood. She is increasing her participation in groups and is making an effort to engage with others in the milieu. 08/29/19 : Improving on current treatments. Plan - Plan Treatment Plan: Name: MARIAM MAR Birthdate: 1995 [id number] # Q30 minute observation with staff pass # The patient requires psychiatric inpatient admission at this time to assure safety, receive treatment and work toward stabilization. # B-HCG was ordered and results are negative. # Obtain collateral information once release is signed. # Collaboration with Mattress Stuffer Shyann Naranjo # Continue wellbutrin 150mg daily and pristiq 100mg daily #Goals before discharge include: Psychiatric Stabilization Tentative Discharge: Pending hospital course and response to treatment Sodium 137 mmol/L (135-145) 08/24/19 13:13 Potassium 4.0 mmol/L (3.5-5.0) 08/24/19 13:13 BUN 9 mg/dL (6-24) 08/24/19 13:13 Creatinine 0.84 mg/dL (0.51-0.95) 08/24/19 13:13 Hemoglobin A1c 5.5 % (4.0-5.6) 08/25/19 08:01 Calcium 9.8 mg/dL (8.6-10.3) 08/24/19 13:13 AST 25 U/L (13-39) 08/24/19 13:13 ALT 50 U/L (7-52) 08/24/19 13:13 Triglycerides 79 mg/dL 08/25/19 08:01 Cholesterol 188 mg/dL 08/25/19 08:01 LDL Cholesterol 124 mg/dL 08/25/19 08:01 Continued Medication Management: Continue Outpt Medication Medications: Current Medications Acetaminophen (Tylenol Tab*) 650 mg PO Q4H PRN PRN Reason: for pain; or Temp >101 F Al Hydrox/Mg Hydrox/Simethicone (Maalox Plus*) 30 ml PO Q4H PRN PRN Reason: INDIGESTION Bupropion HCl (Wellbutrin Xl *) 150 mg PO DAILY [facility] Last Admin: 08/29/19 08:37 Dose: 150 mg Desvenlafaxine Succinate (Pristiq (Nf)) 100 mg PO DAILY [facility] Last Admin: 08/29/19 08:37 Dose: 100 mg Hydroxyzine HCl (Atarax Tab*) 50 mg PO Q6H PRN PRN Reason: Anxiety Last Admin: 08/27/19 22:00 Dose: 50 mg - Discharge Plan Discharge Plan: Outpatient Follow Up Outpatient Program: Private Clinician(s)
[2019-08-30] MEDS: BuPROPion XL* 150 MG TAB.XL PO SCH (08:34)
[2019-08-30] MEDS: CMCS:Desvenlafaxine (NF) 50 MG TAB PO SCH (08:34)
[2019-08-31] MEDS: BuPROPion XL* 150 MG TAB.XL PO SCH (08:39)
[2019-08-31] MEDS: CMCS:Desvenlafaxine (NF) 50 MG TAB PO SCH (08:39)
--- NOTE | 2019-08-31 10:11 | PN ---
Subjective - Subjective Date of Service: 08/31/19 Service Type: 08416 Hosp care 35 min high complexity Subjective: Nursing Report: Patient was visible on unit, no behavioral incidents. She is attending group activities. CC: "Alright" Patient was seen and evaluated today. The patient reported having more energy. She feels that her medication combination is helping. She plans to return to school once she is discharged. She is looking forward to finishing school. She reported having adequate appetite and poor sleep. The patient reports attending day groups. Per nursing no behavioral issues or overnight events reported. Patient reported that she is tolerating medications without side effects. Objective - General Observations Appearance: Neat Appears Stated Age: Yes Stature: WNL Posture: WNL Eye Contact: Average Behavior/Activity: Slowed - Interaction Observations Attitude Towards Examiner: Cooperative Stated Mood: Euthymic Affect: Restricted Speech Pattern/Tone: Quiet Volume Thought Process: Coherent Perception: WNL Thought Content: WNL Hallucination Type: None Delusion Type: None - Cognitive Function Orientation: A&O x 4 Level of Consciousness: Awake - Medication Compliance Cooperative with Inpatient Medication Regimen: Yes - Group Participation Participates in Group Activities: Yes Assessment - Assessment Merits Inpatient Hospitalization: For Immediate Safety Clinical Impression: 24 year old female from [place] diagnosed with Major Depressive Disorder who came to the hospital after many crisis visits to [facility] with suicidal thoughts. Plan - Plan Treatment Plan: Name: JAIMEE MAR Birthdate: 1995 [id number] # Q30 minute observation with staff pass # The patient requires psychiatric inpatient admission at this time to assure safety, receive treatment and work toward stabilization. # B-HCG was ordered and results are negative. # Obtain collateral information once release is signed. # Collaboration with Senior Piping Designer Shyann Naranjo # Continue wellbutrin 150mg daily and pristiq 100mg daily # Phone conference with her mother # Hydroxyzine 50mg qhs past trials worked best for sleep #Goals before discharge include: Psychiatric Stabilization Tentative Discharge: Tomorrow Or Wed Sodium 137 mmol/L (135-145) 08/24/19 13:13 Potassium 4.0 mmol/L (3.5-5.0) 08/24/19 13:13 BUN 9 mg/dL (6-24) 08/24/19 13:13 Creatinine 0.84 mg/dL (0.51-0.95) 08/24/19 13:13 Hemoglobin A1c 5.5 % (4.0-5.6) 08/25/19 08:01 Calcium 9.8 mg/dL (8.6-10.3) 08/24/19 13:13 AST 25 U/L (13-39) 08/24/19 13:13 ALT 50 U/L (7-52) 08/24/19 13:13 Triglycerides 79 mg/dL 08/25/19 08:01 Cholesterol 188 mg/dL 08/25/19 08:01 LDL Cholesterol 124 mg/dL 08/25/19 08:01 Continued Medication Management: Continue Outpt Medication Medications: Current Medications Acetaminophen (Tylenol Tab*) 650 mg PO Q4H PRN PRN Reason: for pain; or Temp >101 F Al Hydrox/Mg Hydrox/Simethicone (Maalox Plus*) 30 ml PO Q4H PRN PRN Reason: INDIGESTION Bupropion HCl (Wellbutrin Xl *) 150 mg PO DAILY [facility] Last Admin: 08/31/19 08:39 Dose: 150 mg Desvenlafaxine Succinate (Pristiq (Nf)) 100 mg PO DAILY [facility] Last Admin: 08/31/19 08:39 Dose: 100 mg Hydroxyzine HCl (Atarax Tab*) 50 mg PO Q6H PRN PRN Reason: Anxiety Last Admin: 08/27/19 22:00 Dose: 50 mg - Discharge Plan Discharge Plan: Inpatient Hospitalization
--- NOTE | 2019-08-31 11:24 | PN ---
BSU: Group Therapy Note - Service Type Service Type: 39795 Group Psychotherapy - Cognitive Behavioral Group Therapy ( CBT):Patient was attentive and participatory in CBT programming this morning, and remained in good behavioral control. Patient expressed positive insights regarding relevant treatment interventions and goals.
[2019-08-31] MEDS ORDERED: hydrOXYzine HCL TAB* 50 MG PO SCH (21:00)
[2019-09-01] MEDS: CMCS:Desvenlafaxine (NF) 50 MG TAB PO SCH (09:00)
[2019-09-01] MEDS: BuPROPion XL* 150 MG TAB.XL PO SCH (09:00)
[2019-09-01 09:41] VITALS: BP 111/68
--- NOTE | 2019-09-01 10:52 | DS ---
Subjective - Subjective Service Types: [address] [facility] Day Mgmt complex over 30 min Discharge Date: 09/01/19 Subjective: CC: " My sleep is better" Patient looks forward to completing the school work that she missed. The patient was seen and evaluated before discharge today. The patient reported having adequate appetite and sleep. The patient reports attending and participating in day groups. Per nursing no behavioral issues or overnight events reported. Patient reported tolerating medications without side effects. JUSTIFICATION FOR ADMISSION: The patient is in need of 24-hour supervision and care secondary to suicidal ideation with a plan CHIEF COMPLAINT: "I do not see my life going anywhere...I am stuck." HISTORY OF PRESENT ILLNESS: The patient is a 24-year-old single black female with a history of depressive disorder, who was brought here on a 9.45 status and is here admitted to this unit on a voluntary status after stating that she is having suicidal thoughts that have been going on for some time. Kady has been here once before in May 2019, following that visit she returned to [facility] and saw Dr. Rhiannon Calderon. Dr. Calderon changed her medications from Pristiq, Abilify and Ativan to Pristiq and was hoping to work on giving her lithium, which was suggested to address her chronic suicidal ideation. She states that she is speaking with friends at work and in class, but is generally isolated from them and she goes home. She states she sits at home and "watches nothing change." She has been missing a few classes here and there. It is 3 weeks into this semester, so she is not certain if her grades are maintained or not. She did pass last semester. She states she is tired and frustrated and she cries because she is frustrated and alone. She states she does not see her life going anywhere and that she is stuck. She states that her depression leads to further depression that her grades have been suffering and she has a lack of direction. She states she does not have an interest in chemistry or anything else anymore. She is experiencing stress and burnout as she has for years. She is sleeping irregularly. She states the only thing that has helped her sleep in the past is Ativan. She has tried melatonin and hydroxyzine. She is having suicidal ideations. She initially states she does not really have a plan and then admits to having a plan of cutting. Her evaluation in the emergency department indicates that she is also considering jumping from a height. She further notes that she has a flight home on Saturday to see her family. She is not apparently eager to see them and offers a long pause and a sigh when asked if she wants to go on this flight. Her sleep is irregular, interest is significantly reduced. Her energy is reduced. She has had trouble concentrating on her schoolwork. She is sitting very still, does not gesture at all and she has suicidal ideation. PAST PSYCHIATRIC HISTORY: She was admitted here on 05/18/19 for a stay of 5 days. She was seen recently and frequently in the past week by her therapist Carmelina Gilbert at [facility]. She has also seen Dr. Rhiannon Calderon, the psychiatrist at [facility] that she has been assigned to. She has been in treatment since September 2017, although she has suffered for years before that. She states the only thing that has helped was exercise from playing basketball in high school. She has had suicidal ideation for years. She does not have access to weapons. PAST MEDICAL HISTORY: Denied. MEDICATIONS: That she has tried in the past include: 1. Wellbutrin. 2. Lexapro. 3. Prozac. 4. Pristiq. 5. Adderall. 6. Strattera. 7. Hydroxyzine. 8. Gabapentin. 9. Guaifenesin. 10. Melatonin 11. Benadryl. She is currently on Pristiq 100 mg. She has been prescribed BuSpar but has not started that yet. VIOLENCE HISTORY: She denies forensic issues. She does not have access to weapons. There is no history of violence. FAMILY HISTORY: She has mom and dad and a brother who is 21. Her brother lives in [place] and is working. She states that she is not close to anyone other than her immediate family and therefore she does not know if there is mental illness in her family. SUBSTANCE ABUSE: She denies using nicotine, alcohol or any other drugs including marijuana. She has had no drug treatment. SOCIAL HISTORY: She is from [place] where she lived with her mom dad and brother. She currently lives alone in an apartment off campus. She denies any abuse history. She is a senior at [employer], majoring in chemistry. She does not have a partner or a romantic interest. 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 She enjoys listening to music and playing video games. She has no experience. There are no legal problems. REVIEW OF SYSTEMS: The patient reports feeling fatigued. She denies shortness of breath, heat or cold intolerance, chest pain or abdominal pain. She denies neurological symptoms. She denies fevers or changes in weight. PHYSICAL EXAMINATION GENERAL: Well appearing, in no distress. VITAL SIGNS: On 08/25/19 at 0800 temperature was 97.3, pulse 90, respirations 14, O2 sat on room air 100, blood pressure 116/71. HEENT: PERRL. PULMONARY: No respiratory distress. No tachypnea. CARDIOVASCULAR: Skin is well perfused. ABDOMEN: Nondistended. SKIN: Warm, pink and dry. MUSCULOSKELETAL: No edema. NEUROLOGIC: Alert and oriented x4. DIAGNOSTIC STUDIES/LAB DATA: Most data are within normal limits exceptions include red blood cells high at 5.01, hemoglobin A1c is normal at 5.5%, triglycerides 79, cholesterol 188, LDL cholesterol 124, HDL cholesterol 48.4. TSH is 1.06. Toxicology screen is free from any drugs of abuse. MENTAL STATUS EXAM: Kady is 5 feet 4 inches approximately 170 pounds. She is a black female with her hair pulled on top of her head into a bun and she is wearing a fabric headband that covers her ears. Her grooming is good. She appears to be hypokinetic. She is calm and cooperative. She is quiet and requires prompting to answer questions. Her speech is in normal rate and tone. Volume is soft. She is dysthymic. She is tearful at times. Her thought processes appear to be of a normal rate and they are logical. Her thought content is free of delusions. She is not homicidal. She remains suicidal and is thinking of suicide on the unit, although she does not have a method on the unit. She is not experiencing hallucinations. Her insight is fair. Her judgment is fair. She is alert and oriented x4. DIAGNOSIS: Major depressive disorder, recurrent, severe. Diagnosis on Discharge: Major Depressive disorder in partial remission. Condition at the time of discharge: At the time of discharge patient showed improvement of sleep and appetite. The patient was not a danger to self or others. The patient denied suicidal ideation, intent or plan. The patient denied homicidal targets, ideation, intent or plan. This patient participated in psychosocial rehabilitation and gained some insight into problems. The patient gained insight into mental illness, triggers, and treatment. The patient took medication as prescribed. The patient denied side effects of medication and objective signs of side effects were not evident. Therapy Resources were offered to the patient. Patient was given a supply of prescriptions at the time of discharge. The patient plans to attend follow up care with the follow up arrangements that were discussed and put in place. Patient was asked to keep appointments as scheduled, take medication as prescribed, have routine follow up care with their primary care physician and refrain from any use of alcohol or drugs. Objective - General Observations Appearance: Neat Appears Stated Age: Yes Stature: WNL Posture: WNL Eye Contact: Average Behavior/Activity: Slowed - Interaction Observations Attitude Towards Examiner: Cooperative Stated Mood: Euthymic Affect: Restricted Speech Pattern/Tone: Quiet Volume Thought Process: Coherent Perception: WNL Thought Content: WNL Hallucination Type: None Delusion Type: None - Cognitive Function Orientation: A&O x 4 Level of Consciousness: Awake Judgment Within Normal Limits: Yes - Medication Compliance Cooperative with Inpatient Medication Regimen: Yes - Group Participation Participates in Group Activities: Yes Treatment Course & Assessment Clinical Course & Impression: Hospital course part A: 24 year old female from [place] diagnosed with Major Depressive Disorder who came to the hospital after many crisis visits to [facility] with suicidal thoughts. Hospital course part B: Labs ordered included CBC, CMP, UDS, TSH, HBA1c, TSH, B HCG, Toxicology screen , Urine analysis, and lipid profile. Labs were reviewed and vital signs were monitored during the course of admission. The patient was admitted to the adult behavioral unit and placed on 15 minute check for safety. At a later time the patient was on Q30 minute observation and staff pass privileges. With those limits being extended, patient was safe on all checks and there were no occurrence of behavioral incidents. The patient did well on the unit and went to groups. Interacted with peers had adequate sleep and regular appetite. Tolerated medication changes without side effects. Group therapy and services were offered. The risks, benefits, and alternative treatment options were discussed as well as of the risks of refusing treatment. Treatment associated risks discussed. After this discussion the patient made an acknowledgement of this understanding. Follow up care appointments were put in place. HBA1c, glucose, and lipid panel was ordered and reviewed to monitor metabolic status. Monitoring for metabolic changes was reviewed and it was emphasized to the patient to be continued to be monitored upon discharge. The patient was informed not to abruptly stop or start new medications before consulting with a medical professional. Improvements shown from the time of admission include: Improved affect, sleep and decrease in anxiety. The patient expressed readiness for discharge home. The patient presents with a broader range of affect, and the absence of depressed mood, delusions, perceptual disturbance. The patient denied suicidal and or homicidal ideation intent or plan. Overall, the patient responded well to inpatient treatment as evidenced by their report of strengthening of coping mechanisms, reduced distress, and more positive outlook on circumstances. Of note there was an improvement of recognizing how emotional state can effect mood and behavior. Safety precautions were put in place which included involving the patient and their family to closely monitor for changes in mental state. In addition, implementing follow up care, screening for the need to remove/securing firearms , weapons and stockpile of medications. Patient/ family instructed to immediately call 911 should any safety concerns arise. The patient was advised of the 24 hour / 7 days a week availability of the emergency room and to call 911 in the event of an emergency such as being suicidal and/ or homicidal. The patient was informed of the contact information for [facility], Suicide Prevention and Crisis Services, National Suicide Prevention Lifeline, [facility], Alcoholics Anonymous, and [facility]. Medications started included wellbutrin 150mg daily for depression, and hydroxyzine 50mg qhs for sleep, pristiq 100mg daily for depression. Family was contacted before discharge. The family confirmed that the patient is at their baseline. At this time both the patient and family are eager for discharge and are in agreement with the discharge plan and can receive care in the less restrictive outpatient setting. They were advised on how the days following discharge can be a vulnerable period and to look out for warning signs associated with decompensation and progression of mental illness. They were notified of the resources available in the event these situations arise and confirmed that the patient has no access to firearms or stockpiles of medications. Her mother plans to visit next week. Patient was not assaultive or a behavioral problem during the course of admission. The patient showed good hygiene and was able to carry out activities of daily living. Patient will be discharged to live at home. Follow up appointment at [facility] Patient informed of follow up appointment times. See more details for follow up care in the discharge plan. Risk factors were mitigated by establishing the patients baseline with close contacts. Implemented precautionary safety measures by confirming no stockpiles of medications and no access to firearms, provided mental health treatment, stabilization of depressive features, provided resources to outpatient services, as well as provided a supportive care environment and therapy resources during the course of hospitalization. Provided trauma based therapy and resources to continue trauma therapy. Safety plan was reviewed with the patient and treatment team. The patient verbalized options they would pursue to ensure their safety in the event they feel unsafe and not doing well. Risk factors: single, history of a mental health condition, recent hospitalization. Protective factors: Female, At discharge patient did not have suicidal ideation , intent or plan. Patient has not made a prior suicide attempt. . Has social/ family support system. No history of service. Currently no feelings of hopelessness, not in an occupation of social isolation, doesnt have multiple medical conditions, no family history of suicide, doesnt have access to firearms. Doesnt have command hallucinations and or psychotic features at this time. No current substance abuse. No current alcohol abuse. Not an anniversary of a loss of a loved one. No recent stressful life event. Currently future orientated. Patient engaged in treatment and compliant with medication. No barriers to seek mental health treatment. Not incarcerated. Not middle or older age. No history of self-injurious behavior, doesnt have cultural belief that supports suicide. Patient does not have a recent loss of someone close that by suicide. Sodium 137 mmol/L (135-145) 08/24/19 13:13 Potassium 4.0 mmol/L (3.5-5.0) 08/24/19 13:13 BUN 9 mg/dL (6-24) 08/24/19 13:13 Creatinine 0.84 mg/dL (0.51-0.95) 08/24/19 13:13 Hemoglobin A1c 5.5 % (4.0-5.6) 08/25/19 08:01 Calcium 9.8 mg/dL (8.6-10.3) 08/24/19 13:13 AST 25 U/L (13-39) 08/24/19 13:13 ALT 50 U/L (7-52) 08/24/19 13:13 Triglycerides 79 mg/dL 08/25/19 08:01 Cholesterol 188 mg/dL 08/25/19 08:01 LDL Cholesterol 124 mg/dL 08/25/19 08:01 Merits Inpatient Hospitalization: No Clear for Discharge: Adequate Clinical Respons Discharge Planning - Discharge Planning Discharge Plan: Outpatient Follow Up Outpatient Program: Counseling/Psych Services at [facility] Recommendations for Continuing Care: Medication Management, Psychotherapy Medications: Current Medications Acetaminophen (Tylenol Tab*) 650 mg PO Q4H PRN PRN Reason: for pain; or Temp >101 F Al Hydrox/Mg Hydrox/Simethicone (Maalox Plus*) 30 ml PO Q4H PRN PRN Reason: INDIGESTION Bupropion HCl (Wellbutrin Xl *) 150 mg PO DAILY [facility] Last Admin: 09/01/19 09:00 Dose: 150 mg Desvenlafaxine Succinate (Pristiq (Nf)) 100 mg PO DAILY [facility] Last Admin: 09/01/19 09:00 Dose: 100 mg Hydroxyzine HCl (Atarax Tab*) 50 mg PO 2100 [facility] Last Admin: 08/31/19 20:47 Dose: 50 mg Discharge Planning: Prescriptions provided for discharge [x] Yes [] No Follow up care details as per social work arrangements. Patient response to discharge plan: [x] eager for discharge [] agreeable with discharge plan [] ambivalent about discharge [] disagrees with discharge today
== END 2019-09-01 16:00 | disposition home or self-care (01) | DRG 885 ==
LOC: ED 12:03 → BSU 15:45
PROVIDERS: ADMIT Psychiatry & Neurology Psychiatry; ATTEND Psychiatry & Neurology Psychiatry
DX: F33.2 Major depressive disorder, recurrent severe without psychotic features (principal); R45.851 Suicidal ideations; Z79.899 Other long term (current) drug therapy
CPT/HCPCS: 36415; 80053; 80061; 80307; 80320; 80329; 81003; 83036; 84443; 84702; 85025; 85660; 90853; 99222; 99231; 99232; 99233; 99284; A9270-GY; G0480